=== PATIENT | male | born 2000 | race Two or more races ===

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

== ENCOUNTER 2019-09-04 16:01 | Emergency (ER) | payer OTHER ==
[2019-09-04 16:30] VITALS: BP 126/78; PULSE 80; TEMP 98.6; BMI 20.7
--- NOTE | 2019-09-04 16:31 | PDOC ---
Rapid Medical Evaluation Chief Complaint: Pain, Acute Time Seen by Provider: 09/04/19 16:28 Medical Evaluation: Allergies Allergy/AdvReac Type Severity Reaction Status Date / Time No Known Allergies Allergy Verified 09/04/19 16:26 Vital Signs Temp Pulse Resp BP Pulse Ox 98.6 F 80 18 126/78 100 09/04/19 16:27 09/04/19 16:27 09/04/19 16:27 09/04/19 16:27 09/04/19 16:27 09/04/19 16:29 I have performed a brief in-person evaluation of this patient. The patient presents with a chief complaint of:recurrent epigastric pain w/ nausea. Seen my myself 07/27 w/ same and prescribe pepcid and zofran. States meds relieved sxs but has since ran out of meds. No labs done on prior visit Pertinent physical exam findings:stable, well elvin I have ordered the following:labs/ua The patient will proceed to the ED for further evaluation. Discharge Disposition - Diagnosis Epigastric pain - Referrals - Patient Instructions - Post Discharge Activity
[2019-09-04] MEDS ORDERED: FAMOTIDINE 20 MG TABLET PO ONE (16:47)
[2019-09-04] MEDS ORDERED: MAG HYDROX/AL HYDROX/SIMETH 30 ML UNIT-DOSE CUP PO ONE (16:47)
[2019-09-04] MEDS ORDERED: FAMOTIDINE 20 MG TABLET ONE (16:57)
[2019-09-04] MEDS ORDERED: MAG HYDROX/AL HYDROX/SIMETH 30 ML UNIT-DOSE CUP ONE (16:57)
--- NOTE | 2019-09-04 16:58 | PDOC ---
History of Present Illness - General Chief Complaint: Pain, Acute Stated Complaint: ABD PAIN Time Seen by Provider: 09/04/19 16:28 History Source: Patient Exam Limitations: No Limitations - History of Present Illness Initial Comments: 09/04/19 16:55 18-year-old male no significant past medical history presenting with 1 month of epigastric pain improved with Zofran and famotidine. Patient states that he ran out of his meds which were given in [facility] ED 1 month ago on 07/27 for very similar symptoms. Patient is complaining today of abdominal bloating with associated nausea without vomiting. Patient states symptoms are made worse after heavy meals and he has a sensation of acid reflux when he lays recumbent. Patient states the pain is nonradiating crampy and gassy in nature. Pt otherwise denies: fevers, chills, syncope, lightheadedness, dizziness, headaches, neck pain, chest pain, shortness of breath, palpitations, back pain, vomiting, diarrhea, constipation. Past History - Medical History Allergies/Adverse Reactions: Allergies Allergy/AdvReac Type Severity Reaction Status Date / Time No Known Allergies Allergy Verified 09/04/19 16:26 Home Medications: Ambulatory Orders No Home Medications 0 dose .ROUTE UTDICT 12/27/11 Mag Hydrox/Al Hydrox/Simeth [Mylanta Suspension -] 30 ml PO Q6H #1 bottle 09/04/19 Ondansetron HCl [Zofran] 4 mg PO BID #20 tablet 09/04/19 Pantoprazole Sodium [Protonix -] 40 mg PO DAILY #30 tablet.ec 09/04/19 Asthma: No COPD: No - Immunization History Immunization Up to Date: Yes - Psycho-Social/Smoking History Smoking Status: No Smoking History: Never smoked Have you smoked in the past 12 months: No Number of Cigarettes Smoked Daily: 0 - Substance Abuse Hx (Audit-C & DAST Scrn) How often the patient has a drink containing alcohol: Monthly or less Score: In Men: 4 or > Positive; In Women: 3 or > Positive: 1 Screen Result (Pos requires Nsg. Audit-10AR): Negative In the last yr the pt used illegal drug/Rx for NonMed reason: No Score: Yes response is considered Positive: 0 Screen Result (Positive result requires Nsg. DAST-10): Negative Review of Systems - Review of Systems Constitutional: No: Chills, Fever HEENTM: No: Eye Pain Respiratory: No: Shortness of Breath Cardiac (ROS): No: Chest Pain ABD/GI: Yes: Abdominal Distended, Nausea, Abdominal cramping. No: Abd. Pain w/ defecation, Blood Streaked Bowels, Diarrhea, Vomiting : No: Burning, Dysuria, Discharge Musculoskeletal: No: Back Pain Integumentary: No: Bruising Neurological: No: Headache, Numbness, Tingling *Physical Exam - Vital Signs Last Vital Signs Temp Pulse Resp BP Pulse Ox 98.6 F 80 18 126/78 100 09/04/19 16:27 09/04/19 16:27 09/04/19 16:27 09/04/19 16:27 09/04/19 16:27 - Physical Exam 09/04/19 16:57 Gen: AAOx 3, no acute distress, comfortable, no signs of respiratory distress HENT: atraumatic, normocephalic with no laceration or contusion. Nasal mucosa without erythema. Oropharynx without erythema or exudates. Mucous membranes moist. EYES: PERRL, EOM intact, conjunctiva pink NECK: supple; trachea midline; no JVD, no lymphadenopathy, or thyromegaly CV: RRR no murmurs, gallops, or rubs. CHEST: CTA b/l no wheezing, rales or rhonchi ABD: +BS/ND. mildly TTP to the epigastrium; rest of abdomen soft, no rebound, no guarding EXTREMITY: no cyanosis or erythema. 2+ dorsalis pedis, posterior tibial, and radial pulse. No pedal edema; no calf swelling or tenderness SKIN: no rash, warm and dry, no diaphoresis HEME: no purpura or ecchymosis NEURO: normal speech, CN II-XII intact, sensation intact, normal gait, no cerebellar deficits MS: 5/5 strength in all extremities, FROM intact in all extremities. ED Treatment Course - LABORATORY CBC & Chemistry Diagram: 09/04/19 17:20 09/04/19 17:20 Medical Decision Making - Medical Decision Making 09/04/19 16:58 18-year-old male no significant past medical history complaining of 1 month crampy abdominal pain in the epigastric region Vital signs stable We will obtain labs and administer Maalox and famotidine for symptomatic relief Will reassess based on result Pt reports improvement in symptoms with meds Labs WNL except Tbili which is slightly elevated, will obtain abdominal US US negative for any acute findings, pt appears well and is safe and stable for discharge with close follow up with both PCP and GI. GI meds sent to patients pharmacy Strict return precautions given Supportive care instructions explained and given to pt. Reasons to return emergently to ER explained and given. Importance of follow up with PMD and other specialists as indicated stressed to pt. Pt verbalized understanding of instructions. Pt to follow up with PMD in 2 days. Discharge - Discharge Information Problems reviewed: Yes Clinical Impression/Diagnosis: Epigastric pain Condition: Stable Disposition: HOME - Additional Discharge Information Prescriptions: Mag Hydrox/Al Hydrox/Simeth [Mylanta Suspension -] 30 ml PO Q6H #1 bottle Pantoprazole Sodium [Protonix -] 40 mg PO DAILY #30 tablet.ec Ondansetron HCl [Zofran] 4 mg PO BID #20 tablet - Follow up/Referral Referrals: Hemal Santana MD [Primary Care Provider] - Amilcar Yanez DO [Staff Physician] - - Patient Discharge Instructions Patient Printed Discharge Instructions: DI for Gastritis - Post Discharge Activity
[2019-09-04 17:30] LABS: BASO % 0.7 % (0-2.0); EOS % 2.5 % (0-4.5); HEMATOCRIT 43.8 % (35.4-49); HEMOGLOBIN 14.6 GM/dL (11.7-16.9); LYMPH % 19.9 % (8-40); MCHC 33.5 g/dl (32.0-35.9); MEAN CELL VOLUME 89.6 fl (80-96); MONO % 6.9 % (3.8-10.2); PLATELET COUNT 179 K/MM3 (134-434); RBC 4.88 M/mm3 (4.00-5.60); RDW 14.5 % (11.9-15.9); WHITE BLOOD COUNT 6.6 K/mm3 (4.0-10.0)
[2019-09-04 17:58] LABS: ALBUMIN 4.2 g/dl (3.4-5.0); BILIRUBIN,TOTAL 1.1 mg/dL (0.2-1); BLOOD UREA NITROGEN 9.4 mg/dL (7-18); CALCIUM 9.3 mg/dL (8.5-10.1); CREATININE 0.8 mg/dL (0.55-1.3); POTASSIUM 4.1 mmol/L (3.5-5.1); TOT PROT 7.1 g/dl (6.4-8.2)
== END 2019-09-04 20:55 | disposition home or self-care (01) ==
LOC: JER 16:01
DX: R10.13 Epigastric pain (principal)
CPT/HCPCS: 36415; 76705-TC; 80053; 83690; 85025; 99285-25